=== PATIENT | male | born 1980 | race Caucasian/White ===

== ENCOUNTER 2017-01-07 12:19 | Emergency (ER) | payer MEDICAID ==
[~2017-01-07] VITALS: Ht 170.2 cm; Wt 74.8 kg
[2017-01-07 13:28] VITALS: BP 124/76
== END 2017-01-07 13:44 | disposition home or self-care (01) ==
LOC: ER 12:19
DX: H10.13 Acute atopic conjunctivitis, bilateral (principal)

== ENCOUNTER 2017-03-19 09:55 | Emergency (ER) | payer MEDICAID ==
[~2017-03-19] VITALS: Ht 170.2 cm; Wt 77.1 kg
[2017-03-19 10:35] VITALS: BP 124/80
== END 2017-03-19 10:59 | disposition home or self-care (01) ==
LOC: ER 09:55
DX: L23.9 Allergic contact dermatitis, unspecified cause (principal)

== ENCOUNTER 2017-04-09 10:44 | Emergency (ER) | payer MEDICAID ==
[~2017-04-09] VITALS: Ht 170.2 cm; Wt 77.1 kg
[2017-04-09 11:01] VITALS: BP 118/80
== END 2017-04-09 11:56 | disposition home or self-care (01) ==
LOC: ER 10:44
DX: L23.9 Allergic contact dermatitis, unspecified cause (principal)

== ENCOUNTER 2022-03-25 00:50 | Emergency (ER) | payer MEDICAID ==
[~2022-03-25] VITALS: Ht 170.2 cm; Wt 71.5 kg
[2022-03-25] MEDS ORDERED: cefTRIAXone SOD 1,000 MG VL IM ONE (02:45)
[2022-03-25] MEDS ORDERED: KETOROLAC TROMETH 60MG/2ML VIAL IM ONE (02:45)
[2022-03-25] MEDS ORDERED: CEPH-510 PO (02:46)
[2022-03-25] MEDS ORDERED: IBUP800T27 PO (02:46)
[2022-03-25 02:57] VITALS: BP 111/79
== END 2022-03-25 03:01 | disposition home or self-care (01) ==
LOC: ER 00:53
DX: L73.9 Follicular disorder, unspecified (principal)
CPT/HCPCS: 96372; 99284; J0696; J1885

== ENCOUNTER 2024-03-13 16:10 | Emergency (ER) | payer MEDICAID ==
[~2024-03-13] VITALS: Ht 170.2 cm; Wt 72.2 kg
[~2024-03-13 16:10] MED LIST: CEPH-510 PO; IBUP-1456 PO
[2024-03-13] MEDS ORDERED: ARTISOL13 EACHEYE (17:03)
[2024-03-13] MEDS ORDERED: IBUP-1455 PO (17:03)
[2024-03-13 17:20] VITALS: BP 101/72; PULSE 82; RESP 18; TEMP 98; O2SAT 98
[2024-03-13] MEDS: diphenhdrAMINE HCL 25 MG CAP PO ONE (17:35)
[2024-03-13] MEDS: DexAMETHasone SOD PHOS 10MG/1ML VIAL INJ IM ONE (17:35)
== END 2024-03-13 18:03 | disposition home or self-care (01) ==
LOC: ER 16:10
DX: T78.49XA Other allergy, initial encounter (principal); H57.13 Ocular pain, bilateral; X58.XXXA Exposure to other specified factors, initial encounter; Z79.899 Other long term (current) drug therapy
CPT/HCPCS: 96372; 99283; J1100